=== PATIENT | male | born 1970 ===

== ENCOUNTER 2019-02-07 02:57 | Observation (INO) ==
[2019-02-07] MEDS ORDERED: Ondansetron 4 MG/2 ML VIAL IVP PRN (08:02)
[2019-02-07] MEDS ORDERED: Acetaminophen 325 MG TABLET PO PRN (08:02)
--- NOTE | 2019-02-07 08:14 | Internal Med History&Physical ---
Date of Encounter: 02/07/19 Time of Encounter: 08:01 Internal Medicine - H&P: HPI Chief complaint: Chest pain, dizziness Admitted From: Emergency Dept History of present illness: Benoit Knight is a 48 M w hx HTN, obesity, who p/w chest pain. Pt describes pain as episodic tightness in mid chest, non-exertional and not related to inspiration, that is associated with dizziness. No sweating, N/V, or radiation to jaw/neck/back/shoulder/arm. Denies palpitations, racing heart, or flushing, and no fevers, SOB, or leg swelling. Patient states that his current wave of symptoms started yesterday (02/06) when he awoke, and that he's been having symptoms on and off throughout the preceding day. However, this is not the first time he's felt this way; he says for several weeks he's this vague discomfort/pain as well as a sensation of dizziness/disorientation almost. Patient denies heart history or cardiac workup other than taking a single me dication for his HTN which he does not know the name of. In the ED, his vitals, CXR, ECG, and trop were all unremarkable. Given nitro paste with complete relief of his pain. He was transferred [facility] for further workup for high risk chest pain and elevated HEART score of 4. Past medical, surgical, social, and family histories reviewed and updated as below. Past Med Surg Social Fam HX - Past Medical History Medical history: hypertension Psychiatric history: no psych history - Past Surgical History Surgical History: no surgical history - Social History Smoking Status: Never smoker Alcohol use: none Drug use: none - Family History Father Hx Family Cardiac Disorders: Yes Hx Family Endocrine Disorder: Yes Mother Living Status: Still Living Hx Family Cardiac Disorders: Yes Internal Medicine - H&P: Meds Allergy/AdvReac Type Severity Reaction Status Date / Time No Known Allergies Allergy Verified 02/07/19 06:50 All Systems PM: A 10-system review of systems was performed and is negative for pertinent findings except as documented above in the HPI. - Constitutional Vitals: Temp Pulse Resp BP Pulse Ox 98.3 F 65 18 128/78 94 02/07/19 07:48 02/07/19 07:48 02/07/19 07:48 02/07/19 07:48 02/07/19 07:48 Exam: General: NAD, good eye contact, well appearing and comfortable Head: Atraumatic, normocephalic. Face symmetric Eyes: EOMI, sclerae anicteric ENT: Mucous membranes moist. Normal oral mucosa and dentition. Trachea midline. Thoracic: No visible chest wall deformities. Normal breath sounds b/l, no wheezing or crackles Cardio: Normal S1 and S2, regular rate and rhythm, no murmurs. Abdomen: Soft, nontender, nondistended. Bowel sounds present. Obese. Extremities: Warm, well perfused. DP pulses 2+ b/l. No clubbing, cyanosis. No edema Skin: Intact. No rashes, bruises, or ulcers Neuro: Awake, fully oriented. Good memory, concentration, attention. Speech flue nt. CN II-XII grossly intact. Strength 5/5 in b/l UE and LE Internal Med - H&P Results - Labs CBC & Chem 7: 02/07/19 08:01 - Summary of Assessment and Plan Summary of Assessment and Plan: Benoit Knight is a 48 M w hx HTN, obesity, who p/w atypical chest pain. Atypical chest pain: ECG unremarkable, trop x1 negative. HEART score 4. - trend trops - tele - TTE - remove nitro paste - Lexiscan HTN: controlled, unknown home med, will await pharmacy med rec Obesity: BMI 39 PPx: ambulate Activity: up ad amarilys FEN: NPO then after stress regular, no MIVF Lines: PIV Consults: Code: Full Dispo: obs for chest pain, anticipate 0-1 days, will be homegoing
[2019-02-07 08:37] LABS: Hematocrit 43.1 % (37.5-50.1); Hemoglobin 14.5 g/dL (12.9-16.9); Mean Corpuscular HGB Conc 33.6 g/dL (31.6-35.5); Mean Corpuscular Hemoglobin 30.1 pg (28.0-33.3); Mean Corpuscular Volume 89.6 fL (83.0-100.0); Mean Platelet Volume 9.3 fL (9.4-12.4); Platelet Count 250 K/mcL (140-400); Red Blood Count 4.81 M/mcL (4.19-5.50); Red Cell Distribution Width 12.3 % (11.5-14.5); White Blood Count 7.4 K/mcL (4.3-11.1)
[2019-02-07 08:48] LABS: BUN/Creatinine Ratio 28 (6-26); Blood Urea Nitrogen 21 mg/dL (6-20); Calcium 9.1 mg/dL (8.6-10.3); Carbon Dioxide 25 mEq/L (23-29); Chloride 104 mEq/L (98-107); Chol/HDL Ratio 3.8 (0-4.9); Cholesterol 143 mg/dL (< 200); Glucose 133 mg/dL (70-105); HDL Cholesterol 38 mg/dL (40-59); LDL Cholesterol,Calculated 83 mg/dL (0-99); Magnesium 1.9 mg/dL (1.6-2.6); Osmolality,Calculated 293 (280-300); Potassium 3.9 mEq/L (3.5-5.1); Sodium 139 mEq/L (136-145); Triglycerides 111 mg/dL (< 150); eGFR For African Americans > 60 (> 60); eGFR For Non-African Americans > 60 (> 60)
[2019-02-07] MEDS ORDERED: Perflutren Lipid Microsphere 1.3 ML in 0.9 % Sodium Chloride 8.7 ML IVP ONE (12:41)
[2019-02-08] MEDS ORDERED: Regadenoson 0.4 MG/5 ML SYRINGE IVP ONE (06:07)
[2019-02-08 07:13] VITALS: BP 119/74
--- NOTE | 2019-02-08 09:21 | Discharge Summary ---
Date of Encounter: 02/08/19 Time of Encounter: 09:10 - Discharge Diagnosis (1) Chest pain Priority: Primary Status: Acute Qualifiers: Chest pain type: unspecified Qualified Code(s): R07.9 - Chest pain, unspecified Hospital course: Mr. HENRY is a 48 year old male with a past medical history significant for hypertension, obesity presented to the hospital with her typical chest pain, on inspiration, nonexertional. Level did not show any acute abnormalities. Patient troponin are normal. Chest x-ray was normal. No EKG changes. Patient was admitted to the hospital for further management with intent to get the stress test. Echocardiogram overnight showed normal ejection fraction with mild concentric left ventricular hypertrophy, mild left ventricular diastolic dysfunction. In the morning, patient expresses wishes to leave AMA. Patient was told that this is not in his best interest. He was told that it is best to get the stress test to rule out any possibility of cardiovascular disease. Patient voiced understanding but he does not want to stay in the hospital. He was counseled about the adverse effects of leaving the hospital which include but are not limited to increased risk of MS, worsening of cardiovascular disease, and . Patient find the AMA papers and is leaving the hospital. He was counseled to continue on his blood pressure medications. His ASCVD 10 years score score is 7. No addition of further medications was made. Patient is currently asymptomatic, denies any chest pain. - Time Spent with Patient Total time spent providing and/or coordinating discharge services:25 minutes - Discharge Medications Prescriptions: Continued Meclizine HCl [Verticalm] 25 mg PO TID Lisinopril-HCTZ 10-12.5 [Prinzide 10-12.5] 1 each PO DAILY Home Medications: Lisinopril-HCTZ 10-12.5 [Prinzide 10-12.5] 1 each PO DAILY 02/07/19 [History] Meclizine HCl [Verticalm] 25 mg PO TID 02/07/19 [History] Allergies/Adverse Reactions: Allergy/AdvReac Type Severity Reaction Status Date / Time No Known Allergies Allergy Verified 02/07/19 06:50 Date of admission: 02/07/19 05:27 Primary care physician: PCP NONE - Constitutional Vitals: Temp Pulse Resp BP Pulse Ox 98.0 F 60 14 119/74 97 02/08/19 07:03 02/08/19 07:03 02/08/19 07:03 02/08/19 07:03 02/08/19 07:03 Exam: General: Alert and oriented, no physical distress, able to follow commands. HEENT: No thyromegaly, no lymphadenopathy, no discharge. Eyes: No discharge. Normal conjuctiva, no icterus Respiratory: Normal vesicular breathing, no added sounds, breathing equal in both sides. CVS: Normal heart sounds, no murmurs, regular rhthm, no edema Extremities: No peripheral edema, peripheral pulses intact. Lymph nodes: No lymphadenopathy Gastrointestinal: Soft, nontender abdomen, normal abdominal sounds. No distention noted. Genitourinary: No paravertebral tenderness. Skin: No rash, ulcers or wound. Neurological: Alert and oriented. No focal deficits. Cranial nerves II-XII intact. - Patient Status Disposition: Left Against Medical Advice Condition: Good - Discharge Instructions Follow Up With: NONE,PCP [Primary Care Provider] -
== END 2019-02-08 11:48 | disposition left against medical advice (07) ==
LOC: 2NENU
PROVIDERS: ADMIT Internal Medicine; ATTEND Internal Medicine